=== PATIENT | male | born 1965 | race Hispanic/Latino ===

== ENCOUNTER 2021-06-01 23:07 | Emergency (ER) | payer OTHER ==
[~2021-06-01] VITALS: Ht 185.4 cm; Wt 136.1 kg
--- NOTE | 2021-06-01 23:21 | NUR ---
Patient presents with C/O vomiting x 5 hours. Patient states, "I have been vomiting for about 5 hours today, every 10 minutes and I have been nauseous too. This has happened to me in the past and they just give me fluids and Zofran and then I am fine." Patient is alert, no signs of distress noted, no vomiting since arrival. No other complaints at this time.
[2021-06-01 23:26] VITALS: BP 162/82
--- NOTE | 2021-06-01 23:30 | NUR ---
Using aseptic technique 20 gauge IV inserted in Left AC x 1 attempt, good blood return, labs drawn, IV flushed, secured. Patient tolerated well.
[2021-06-02] MEDS ORDERED: NS 1000ML 1,000 ML ONE (00:09)
[2021-06-02] MEDS ORDERED: ZOFRAN ONE (00:09)
[2021-06-02] MEDS ORDERED: LACTATED RINGERS 1,000 ML IV STA (00:13)
[2021-06-02] MEDS ORDERED: ZOFRAN IV STA (00:13)
[2021-06-02 00:25] LABS: BASOPHIL % 0.2 % (0.0-0.2); EOSINOPHIL % 0.1 % (0.0-5.0); LYMPHOCYTES # 0.96 10^3/uL1 (1.0-4.8); MEAN CORP HGB 30.9 pg (26-34); MONOCYTES # 0.4 10^3/uL (0.3-0.8); MONOCYTES % 2.4 % (5.0-12.0); NEUTROPHIL # 14.6 10^3/uL (1.8-7.7); NEUTROPHILS % 90.7 % (41.0-85.0); PLATELET COUNT 229 10^3/uL (150-400)
--- NOTE | 2021-06-02 00:27 | PCM.EKG ---
[facility] Test Date: 2021-06-02 Test Time: 00:19:34 Pat Name: ROYCE GARCIA Department: [id number] Room: Gender: M Chucker: GODWIN : 1965 Requested By: JEAN CARLOS PÉREZ Order Number: [id number] Reading MD: Jean Carlos PÉREZ Measurements Intervals [place] Rate: 72 P: 48 ID: [id number] QRS: 45 QRSD: 83 T: 51 QT: 403 QTc: 442 Interpretive Statements Sinus rhythm Anteroseptal infarct, age indeterminate No previous ECG available for comparison Electronically Signed On 06-02-2021 19:40:45 CDT by Jean Carlos PÉREZ Please click the below link to view image of tracing.
[2021-06-02 00:30] VITALS: BP 154/87
[2021-06-02 00:49] LABS: ALANINE AMINOTRANSFERASE(ML) 34 U/L (12-78); ALKALINE PHOSPHATASE 103 U/L (50-136); ASPARTATE AMINO TRANSFERASE 19 U/L (0-35); CALCIUM 8.9 mg/dL (8.4-10.5); CARBON DIOXIDE 21.3 mmol/L (20.0-32); GLUCOSE 190 mg/dL (70-110)
--- NOTE | 2021-06-02 00:58 | ER.PDOC ---
General Chief Complaint: Nausea,Vomiting,Diarrhea Stated Complaint: VOMITING Time seen by MD: 00:23 Source: patient Exam Limitations: no limitations History of Present Illness Initial Comments And vomiting for 5 hours. Patient denies abdominal pain. No fever or chills. He has had similar episodes in the past. Severity/Quality: moderate Associated Symptoms (vomiting): freq vomitng Prior symptoms/Treatment: Similar symptoms previous Vital Signs First Vital Signs Date Time Temp Pulse Resp B/P (MAP) Pulse Ox O2 Delivery O2 Flow Rate FiO2 06/01/21 23:26 99.3 78 18 162/82 (108) 95 Room Air Last Vital Signs Date Time Temp Pulse Resp B/P (MAP) Pulse Ox O2 Delivery O2 Flow Rate FiO2 06/02/21 01:30 82 16 149/84 (105) 98 Room Air 06/01/21 23:26 99.3 Past Medical History Medical History: high cholesterol Surgical History: no surgical history Family History Significant Family History: no pertinent family hx Social History Alcohol Use: occassionally Drug Use: marijuana Constitutional: no symptoms reported EENTM: no symptoms reported Respiratory: no symptoms reported Cardiovascular: no symptoms reported Gastrointestinal: see HPI All Other Systems: Reviewed and Negative Physical Exam General Appearance: No Apparent Distress, WD/WN, Obese HEENT: PERRL/EOMI, Normal ENT Inspection, TMs Normal, Pharynx Normal Neck: Non-Tender, Full Range of Motion, Supple, Normal Inspection Respiratory: chest non-tender, lungs clear, normal breath sounds, no respiratory distress, no accessory muscle use Cardiovascular: Normal Peripheral Pulses, Regular Rate, Rhythm, No Edema, No Gallop, No JVD, No Murmur Gastrointestinal: Normal Bowel Sounds, Non Tender, Soft Back: Normal Inspection, No CVA Tenderness, No Vertebral Tenderness Extremities: Normal Range of Motion, Non-Tender, Normal Inspection, No Pedal Edema, No Calf Tenderness, Normal Capillary Refill, Pelvis Stable Neurologic/Psychiatric: firer kiln II-XII NML as Tested, No Motor/Sensory Deficits, Alert, Normal Mood/Affect, Oriented x 3 Skin: Normal Color, Warm/Dry Lymphatic: No Adenopathy Results/Orders Results/Orders Orders - JEAN CARLOS PÉREZ MD 0.9 % Sodium Chloride (Ns 1000ml) (06/02/21 00:09) Ondansetron Hcl/Pf (Zofran) (06/02/21 00:09) Cbc With Auto Diff (06/02/21 00:13) Comprehensive Metabolic Panel (06/02/21 00:13) Lipase (06/02/21 00:13) Ekg-Routine (06/02/21 00:13) Troponin I (06/02/21 00:13) Ringer's Solution,Lactated (Lactated Rin (06/02/21 00:13) Ondansetron Hcl/Pf (Zofran) (06/02/21 00:13) Urinalysis (06/02/21 00:42) Ct Abd/Pelvis Wo Iv Contrast (06/02/21 00:42) Urine Culture (06/02/21 00:45) Ceftriaxone Sodium (Rocephin) (06/02/21 02:25) Vital Signs Date Time Temp Pulse Resp B/P (MAP) Pulse Ox O2 Delivery O2 Flow Rate FiO2 06/02/21 01:30 82 16 149/84 (105) 98 Room Air 06/02/21 00:30 73 16 154/87 (109) 97 Room Air 06/01/21 23:26 99.3 78 18 95 06/01/21 23:26 99.3 78 18 06/01/21 23:26 99.3 78 18 162/82 (108) 95 Room Air Administered Medications Medications (Trade) Dose Ordered Sig/Min Route PRN Reason Start Time Stop Time Status Last Admin Dose Admin Ondansetron HCl (Zofran) 4 mg STAT STAT IV 06/02/21 00:13 06/02/21 00:15 DC 06/02/21 00:16 4 MG Laboratory Tests Test 06/02/21 00:02 06/02/21 00:32 06/02/21 00:45 White Blood Count 16.1 10^3/uL (4.5-11.0) H Red Blood Count 5.24 10^6/uL (4.50-5.90) Hemoglobin 16.2 g/dL (13.9-16.3) Hematocrit 46.4 % (37.0-53.0) Mean Corpuscular Volume 88.5 fL (78-100) Mean Corpuscular Hemoglobin 30.9 pg (26-34) Mean Corpuscular Hemoglobin Concent 34.9 g/dL (33-36.5) Red Cell Distribution Width 13.0 % (11.5-14.5) Platelet Count 229 10^3/uL (150-400) Mean Platelet Volume 12.1 fL (7.8-11.0) H Neutrophils (%) (Auto) 90.7 % (41.0-85.0) *H Lymphocytes (%) (Auto) 6.0 % (24.0-44.0) *L Monocytes (%) (Auto) 2.4 % (5.0-12.0) L Neutrophils # (Auto) 14.6 10^3/uL (1.8-7.7) H Lymphocytes # (Auto) 0.96 10^3/uL1 (1.0-4.8) L Monocytes # (Auto) 0.4 10^3/uL (0.3-0.8) Absolute Immature Granulocyte (auto 0.09 10^3 u/L (0-2) Absolute Eosinophils (auto) 0.0 10^3/uL (0.0-0.2) Immature Granulocytes % 0.60 % (0.00-0.50) H Eosinophils % 0.1 % (0.0-5.0) Basophils % 0.2 % (0.0-0.2) Basophils # 0.0 10^3/uL (0.0-0.1) Sodium Level 138 mmol/L (132-145) Potassium Level 3.6 mmol/L (3.6-5.2) Chloride Level 103.0 mmol/L (96-109) Carbon Dioxide Level 21.3 mmol/L (20.0-32) Anion Gap 17.3 Blood Urea Nitrogen 11 mg/dL (7-18) Creatinine 0.91 mg/dL (0.59-1.40) Estimated GFR () 105.5 (>/=60) Est GFR (CKD-EPI)(Non-Afr [place]) 87.2 (>/=60) BUN/Creatinine Ratio 12.0 Glucose Level 190 mg/dL (70-110) H Calcium Level 8.9 mg/dL (8.4-10.5) Total Bilirubin 0.8 mg/dL (0.2-1.0) Aspartate Amino Transferase (AST) 19 U/L (0-35) Alanine Aminotransferase (ALT) 34 U/L (12-78) Alkaline Phosphatase 103 U/L (50-136) Troponin I < 0.02 ng/mL (0.00-0.05) Total Protein 8.0 g/dL (6.4-8.2) Albumin 4.2 g/dL (3.4-5.0) Globulin 3.8 Albumin/Globulin Ratio 1.105 Lipase 60 U/L (114-286) L Segmented Neutrophils 96 % (31-76) H Lymphocytes 4 % (25-36) L Platelet Estimate ADEQUATE Platelet Morphology NORMAL Urine Collection Type RANDOM Urine Color YELLOW Urine Appearance CLEAR Urine Bilirubin NEGATIVE (NEGATIVE) Urine Ketones 40 mg/dL (NEGATIVE) H Urine Specific [place] >=1.030 (1.005-1.030) Urine pH 6.0 (4.5-8.0) Urine Protein 30 mg/dL (NEGATIVE) H Urine Urobilinogen 0.2 E.U./dL (0.2) Urine Nitrate NEGATIVE (NEGATIVE) Urine Leukocyte Esterase NEGATIVE (NEGATIVE) Urine Glucose (Auto)(UA) NEGATIVE (NEGATIVE) Urine Blood MODERATE (NEGATIVE) H Urine RBC 2-5 RBC/HPF (NONE SEEN) Urine WBC NONE SEEN WBC/HPF (0-2) Urine Squamous Epithelial Cells FEW #/HPF (FEW) Urine Bacteria FEW (NONE SEEN) H Progress Progress CT abdomen/pelvis: Marked hepatic steatosis and moderate hepatomegaly. 2. Diastasis recti. 3. Colonic diverticulosis without diverticulitis. The appendix is normal. No acute pathology identified in the GI tract. 4. Please see above discussion for other details of findings. Patient is WBC 16.1 with a left shift. Urinalysis is unremarkable. I had to do a CT abdomen/pelvis because of elevated white count looking for source of infection which I cannot find. I will treat patient empirically with broad-spectrum antibiotics. Overall he is feeling better to go home after Zofran and hydration. I asked him to follow-up with his PCP in 2 to 3 days which she voices understanding. Reviewed labs and imaging studies with the patient who voices understanding. EKG/XRAY/CT/US EKG: NSR, no ST T wave changes EKG Comments: HR 72, normal P axis ER DEPART Departure Time of Disposition: 02:30 Disposition: 01 HOME / SELF CARE / HOMELESS Impression: Primary Impression: Nausea & vomiting Additional Impressions: Dehydration Leukocytosis, unspecified Condition: Improved Referrals: PCP,UNKNOWN (PCP) PRIMARY CARE PROVIDER Additional Instructions: Ciprofloxacin Zofran ODT Start feeding with clear liquids and advance diet as tolerated last night follow-up with PCP in 2 to 3 days Return to ED if worsening symptoms or concerns Duration or Time Spent with Pa: 60 min Problem Qualifiers Primary Impression: Nausea & vomiting Vomiting type: unspecified Vomiting Intractability: intractable Qualified Codes: R11.2 - Nausea with vomiting, unspecified JEAN CARLOS PÉREZ MD Jun 02, 2021 00:58
[2021-06-02 01:04] LABS: BILIRUBIN,URINE NEGATIVE (NEGATIVE); UA COLOR YELLOW; UROBILINOGEN,URINE 0.2 E.U./dL (0.2)
[2021-06-02 01:12] LABS: LYMPHOCYTE 4 % (25-36); SEGMENTED NEUTROPHILS 96 % (31-76)
[2021-06-02 01:30] VITALS: BP 149/84
--- NOTE | 2021-06-02 02:02 | DIREP ---
PROCEDURE:CT ABDOMEN/PELVIS W/O CONTRAST COMPARISON:None. INDICATIONS:Vomiting and leukocytosis TECHNIQUE:Axial images were created through the abdomen and pelvis without intravenous contrast material. No oral contrast was administered. Sagittal and coronal reconstructions were performed from source images. FINDINGS: LUNG BASES:Normal. No visible pulmonary or pleural disease. LIVER:Marked fatty infiltration of the liver. Craniocaudal diameter the liver measures 24 cm, moderate hepatomegaly. BILIARY:Normal. No visible dilatation or calcification. PANCREAS:Normal. No lesion, fluid collection, ductal dilatation, or atrophy. SPLEEN:Normal. No enlargement or focal lesion. ADRENALS:Normal. No mass or enlargement. URINARY TRACT:Normal. No focal lesions or hydronephrosis. No renal calculus. AORTA/VASCULAR:Minimal arterial calcification. No aneurysm. RETROPERITONEUM:Normal. No mass or adenopathy. BOWEL/MESENTERY:Somewhat limited evaluation due to lack of oral or IV contrast administration. No intestinal obstruction, free air, free fluid, or mesenteric inflammation. The appendix is normal. Multiple colonic diverticula without diverticulitis. ABDOMINAL WALL:Infraumbilical diastasis recti. There is 7.2 cm separation between the medial margins of the right and left abdominal rectus muscles. There is a preserved thin mild fracture layer in the anterior abdominal wall; no true hernia sac is identified. The diastasis measures approximately 13 cm in craniocaudal length. Small bilateral fat containing inguinal hernias are not clinically significant. PELVIC ORGANS:Normal. No visible mass. Pelvic organs appropriate for patient age. BONES:No acute findings. OTHER:Negative. CONCLUSION: 1. Marked hepatic steatosis and moderate hepatomegaly. 2. Diastasis recti. 3. Colonic diverticulosis without diverticulitis. The appendix is normal. No acute pathology identified in the GI tract. 4. Please see above discussion for other details of findings. End of Dictated by: South Small M.D. on 06/02/2021 at 01:56 AM
[2021-06-02] MEDS ORDERED: ROCEPHIN 1,000 MG in NS 100ML 100 ML IV STA (02:25)
[2021-06-02] MEDS ORDERED: NS 100ML 100 ML IV ONE (02:27)
[2021-06-02] MEDS ORDERED: ROCEPHIN ONE (02:28)
== END 2021-06-02 03:50 | disposition home or self-care (01) ==
LOC: ER 23:07
DX: E86.0 Dehydration (principal); D72.829 Elevated white blood cell count, unspecified; F12.90 Cannabis use, unspecified, uncomplicated; E78.00 Pure hypercholesterolemia, unspecified; Z79.899 Other long term (current) drug therapy
CPT/HCPCS: 36415; 74176; 80053; 81001; 83690; 84484; 85025; 87040 ×2; 87086; 93005; 96361; 96365; 96375; 99285; J0696 ×2; J2405; J7030

== ENCOUNTER 2021-06-04 15:16 | Emergency (ER) | payer OTHER ==
[~2021-06-04] VITALS: Ht 185.4 cm; Wt 136.1 kg
--- NOTE | 2021-06-04 15:41 | NUR ---
ARRIVAL PT ARRIVED TO ED WITH C/O NAUSEA AND VOMITTING FOR 3 DAYS. PT WAS SEEN FRIDAY NIGHT IN THE ER FOR THE SAME SYMPTOMS. PT REPORTS LAST BM TODAY AND OF NORMAL CONSISTENCY. PT DENIES ANY ABD PAIN.
[2021-06-04 15:46] VITALS: BP 115/75
[2021-06-04] MEDS ORDERED: PHENERGAN PO STA (16:40)
[2021-06-04] MEDS ORDERED: PHENERGAN ONE ×2 (16:41→18:08)
--- NOTE | 2021-06-04 16:44 | ER.PDOC ---
General Chief Complaint: Nausea,Vomiting,Diarrhea Stated Complaint: VOMITING,NAUSEA Time seen by MD: 16:42 Source: patient Exam Limitations: no limitations History of Present Illness Initial Comments Intermittent nausea and gargling for several months. No abdominal pain. No diarrhea. No fever or chills. Patient saw a fitter's assistant 2 months ago in [place] for the same chronic problems. He to me that EGD was unremarkable. He was also seen here 3 days ago for the same presentation. Labs and CT scan were done. Severity/Quality: moderate Prior symptoms/Treatment: Similar symptoms previous, Recenly Seen, Treated by Doctor Allergies: Coded Allergies: No Known Allergies (Unverified , 06/04/21) Vital Signs First Vital Signs Date Time Temp Pulse Resp B/P (MAP) Pulse Ox O2 Delivery O2 Flow Rate FiO2 06/04/21 15:46 98.5 93 18 95 06/04/21 15:46 115/75 (88) Room Air Last Vital Signs Date Time Temp Pulse Resp B/P (MAP) Pulse Ox O2 Delivery O2 Flow Rate FiO2 06/04/21 19:52 98.5 92 18 171/96 (121) 95 Room Air Past Medical History Medical History: high cholesterol Surgical History: colon, tonsillectomy Family History Significant Family History: no pertinent family hx Social History Smoking: non-smoker Alcohol Use: none Drug Use: none Constitutional: no symptoms reported EENTM: no symptoms reported Respiratory: no symptoms reported Cardiovascular: no symptoms reported Gastrointestinal: see HPI Genitourinary: no symptoms reported All Other Systems: Reviewed and Negative Physical Exam General Appearance: No Apparent Distress, WD/WN, Obese Neck: Non-Tender, Full Range of Motion, Supple, Normal Inspection Respiratory: chest non-tender, lungs clear, normal breath sounds, no respiratory distress, no accessory muscle use Cardiovascular: Normal Peripheral Pulses, Regular Rate, Rhythm, No Edema, No Gallop, No JVD, No Murmur Gastrointestinal: Normal Bowel Sounds, Non Tender, Soft Back: Normal Inspection, No CVA Tenderness, No Vertebral Tenderness Extremities: Normal Range of Motion, Non-Tender, Normal Inspection, No Pedal Edema, No Calf Tenderness, Normal Capillary Refill, Pelvis Stable Neurologic/Psychiatric: clergy member II-XII NML as Tested, No Motor/Sensory Deficits, Alert, Normal Mood/Affect, Oriented x 3 Skin: Normal Color, Warm/Dry Lymphatic: No Adenopathy Results/Orders Results/Orders Vital Signs Date Time Temp Pulse Resp B/P (MAP) Pulse Ox O2 Delivery O2 Flow Rate FiO2 06/04/21 19:52 98.5 92 18 171/96 (121) 95 Room Air 06/04/21 18:49 98.5 83 18 171/96 (121) 90 Room Air 06/04/21 15:46 98.5 93 18 115/75 (88) 95 Room Air 06/04/21 15:46 98.5 93 18 06/04/21 15:46 98.5 93 18 95 Administered Medications Medications (Trade) Dose Ordered Sig/Min Route PRN Reason Start Time Stop Time Status Last Admin Dose Admin Promethazine HCl (Phenergan) 25 mg STAT STAT IV 06/04/21 17:50 06/04/21 17:52 DC 06/04/21 18:16 25 MG Promethazine HCl (Phenergan) 25 mg STAT STAT PO 06/04/21 16:40 06/04/21 16:42 DC 06/04/21 16:43 25 MG Sodium Chloride 1,000 ml @ 1,200 mls/hr Q50M STAT IV 06/04/21 17:50 06/04/21 18:39 DC 06/04/21 18:16 1,200 MLS/HR Laboratory Tests Test 06/04/21 16:53 06/04/21 17:12 06/04/21 18:12 White Blood Count 18.5 10^3/uL (4.5-11.0) H Red Blood Count 5.28 10^6/uL (4.50-5.90) Hemoglobin 16.1 g/dL (13.9-16.3) Hematocrit 45.8 % (37.0-53.0) Mean Corpuscular Volume 86.7 fL (78-100) Mean Corpuscular Hemoglobin 30.5 pg (26-34) Mean Corpuscular Hemoglobin Concent 35.2 g/dL (33-36.5) Red Cell Distribution Width 12.8 % (11.5-14.5) Platelet Count 234 10^3/uL (150-400) Mean Platelet Volume 11.1 fL (7.8-11.0) H Neutrophils (%) (Auto) 88.9 % (41.0-85.0) H Lymphocytes (%) (Auto) 4.4 % (24.0-44.0) *L Monocytes (%) (Auto) 6.0 % (5.0-12.0) Neutrophils # (Auto) 16.4 10^3/uL (1.8-7.7) H Lymphocytes # (Auto) 0.82 10^3/uL1 (1.0-4.8) L Monocytes # (Auto) 1.1 10^3/uL (0.3-0.8) H Absolute Immature Granulocyte (auto 0.06 10^3 u/L (0-2) Absolute Eosinophils (auto) 0.0 10^3/uL (0.0-0.2) Immature Granulocytes % 0.30 % (0.00-0.50) Eosinophils % 0.1 % (0.0-5.0) Basophils % 0.3 % (0.0-0.2) H Basophils # 0.1 10^3/uL (0.0-0.1) Sodium Level 136 mmol/L (132-145) Potassium Level 3.3 mmol/L (3.6-5.2) L Chloride Level 100.0 mmol/L (96-109) Carbon Dioxide Level 27.7 mmol/L (20.0-32) Glucose Level 135 mg/dL (70-110) H Blood Urea Nitrogen 14 mg/dL (7-18) Creatinine 0.91 mg/dL (0.59-1.40) Calcium Level 9.1 mg/dL (8.4-10.5) Anion Gap 11.6 Estimated GFR () 105.5 (>/=60) Est GFR (CKD-EPI)(Non-Afr [place]) 87.2 (>/=60) BUN/Creatinine Ratio 15.0 Lipase 75 U/L (114-286) L Differential Total Cells Counted 100 #CELLS Segmented Neutrophils 89 % (31-76) H Lymphocytes 5 % (25-36) L Monocytes 6 % (3-9) Nucleated Red Blood Cells 1 % (0-0) H Differential Comment NORMAL Platelet Estimate ADEQUATE Platelet Morphology NORMAL Blood Morphology Comment NORMAL MORPHOLOGY Lactic Acid Level 1.9 mmol/L (0.5-1.9) Procalcitonin < 0.05 ng/mL (0.05-0.5) L Progress Progress Patient reevaluated at 2024, symptoms are substantially improved. The patient admits to daily marijuana use for many years. His symptoms are consistent with cannabis hyperemesis syndrome. His inflammatory markers not demonstrate any signs of infection. Procalcitonin undetectable lactic within normal limits. His leukocytosis is likely reactive from persistent vomiting. Discharged in satisfactory condition at this time all questions answered. ER DEPART Departure Time of Disposition: 20:24 Disposition: 01 HOME / SELF CARE / HOMELESS Impression: Primary Impression: Cannabinoid hyperemesis syndrome Condition: Improved Referrals: PCP,UNKNOWN (PCP) PRIMARY CARE PROVIDER Additional Instructions: The symptoms you are experiencing are related to your marijuana use. If you continue to cessation from marijuana use these should resolve. In the meantime you may take a very hot shower or put capsaicin cream on your skin to help alleviate your symptoms. Please take the prescribed Phenergan as needed to treat your symptoms. Duration or Time Spent with Pa: 15 JEAN CARLOS PÉREZ MD Jun 04, 2021 16:44 WILFRED WARD DO Jun 04, 2021 20:26
[2021-06-04 16:56] LABS: BASOPHIL # 0.1 10^3/uL (0.0-0.1); BASOPHIL % 0.3 % (0.0-0.2); EOSINOPHIL % 0.1 % (0.0-5.0); LYMPHOCYTES # 0.82 10^3/uL1 (1.0-4.8); LYMPHOCYTES % 4.4 % (24.0-44.0); MEAN CORP HGB 30.5 pg (26-34); MONOCYTES # 1.1 10^3/uL (0.3-0.8); NEUTROPHIL # 16.4 10^3/uL (1.8-7.7); NEUTROPHILS % 88.9 % (41.0-85.0); PLATELET COUNT 234 10^3/uL (150-400); RED CELL DISTRIBUTION WIDTH 12.8 % (11.5-14.5)
[2021-06-04 17:26] LABS: CALCIUM 9.1 mg/dL (8.4-10.5); CARBON DIOXIDE 27.7 mmol/L (20.0-32)
[2021-06-04] MEDS ORDERED: NS 1000ML 1,000 ML IV STA (17:50)
[2021-06-04] MEDS ORDERED: PHENERGAN IV STA (17:50)
[2021-06-04] MEDS ORDERED: NS 1000ML 1,000 ML ONE (18:07)
[2021-06-04 18:49] VITALS: BP 171/96
[2021-06-04 19:34] LABS: DIFFERENTIAL COMMENT NORMAL; LYMPHOCYTE 5 % (25-36); MONOCYTE 6 % (3-9); NUCLEATED RED BLOOD CELLS 1 % (0-0); SEGMENTED NEUTROPHILS 89 % (31-76)
[2021-06-04 19:52] VITALS: BP 171/96
== END 2021-06-04 20:41 | disposition home or self-care (01) ==
LOC: ER 15:16
DX: F12.188 Cannabis abuse with other cannabis-induced disorder (principal)
CPT/HCPCS: 36415; 80048; 83605; 83690; 84145; 85025; 96361; 96374; 99283; J2550; J7030